=== PATIENT | male | born 1950 | race Caucasian/White ===

== ENCOUNTER → 2020-06-23 | Outpatient (CLI) | payer MEDICARE ==
--- NOTE | 2020-06-23 12:55 | ST Modified Barium Swallow ---
Recommendation - Recommendations Recommendations: Recommend patient have thin liquids and mechanical soft solids with ground meats. Patient is at moderate risk of aspiration on this diet, however, patient and family voice understanding and continue to want to consume PO. Patient may benefit from dysphagia therapy to address reduced pharyngeal constriction and airway closure. Patient to speak with physician for referral if he wishes to pursue this. Medical Diagnoses - Medical Diagnoses Medical Diagnosis Description & ICD-10 Code(s): dysphagia R13.10 Other Medical Diagnoses/Co-Morbidities: per patient and family report: COPD, C6- 7 replacement x2 months, PEG placement, recurrent pneumonia, pacemaker ST Modified Barium Swallow - General Date: 06/23/20 Referring Physician: Tyler Conley PA-C Risks/Precautions: Falls, Aspiration Date of Onset: 04/12/20 - approximate onset Reason for Referral: difficulty swallowing, hx of aspiration pneumonia - History -: Medical - Patient arrived with son for study, both contributed to medical history. The patient reports having swallowing difficulties following a cervical spine surgery (C6-7) approximately 2 months ago. Patient reportedly developed aspiration pneumonia in May, and had a swallow study at the hospital with PEG placed approximately 6-7 weeks ago. Patient has started eating by mouth soft solids, and water as only liquid by mouth. Patient does report having had speech therapy in inpatient rehab and home health, reports largely oral motor exercises completed. Medications: per family report: garbadil, insulin, isosorb, furosemin Allergies: none reported - Functional Status Prior Functional Status: INDEPENDENT: feeding - independent Current Functional Limitations: feeding - PEG feeds, some PO - Subjective Patient/caregiver goal(s): safe swallow, r/o aspiration Cognitive-Linguistic Function: WNL Speech Intelligibility: WNL Current Nutritional Means: PEG, PO Current PO diet: Soft - with thin water only Current symptoms: Hx of asp. pneumonia Pain: Patient reports, 0/5 - Objective Assessment: Upright, Left Lateral - Food Trials Used Food trials used: Thin liquids, [place] thick liquids, Pureed, Regular The patient: Was Able to Self Feed - Oral-Motor Skills Dentition: Partial Velo-pharyngeal function: Unremarkable Laryngeal Function: clear voicing - Assessment Oral prep: Normal Labial closure: Adequate Leakage: None Mastication: Adequate Lingual Movement: Normal Oral stage: Normal for this Procedure - Pharyngeal Stage Initiation of Pharyngeal Stage Reflex: Normal Decreased laryngeal elevation: Yes - mild Reduced Velopharyngeal Closure: no Reduced pressure generation: Yes - moderate reduced tongue-based retraction: No Pre-swallow pooling in valleculae: None Pre-Swallow pooling in pyriforms: None Reduced Thyro-Hyoid approximation: Yes - mild Reduced epiglottic excursion: Yes - moderate Reduced pharyngeal peristalsis/contraction: Yes - moderate Multiple Swallows with: Ineffective Clearance Post-swallow residulas vallecular: Significant Post-Swallow residuals in pyriforms: Mild - Fall Risk Assessment Medications/Conditions that increase fall risks include: Antidepressants, sedatives, anti-arrhythmic, diuretic, benzodiazipenes, neuroleptics. BP regulation problems, cardiac problems, balance or gait deficits, neurological problems. Is patient considered at risk for falls: yes Fall Risk Actions Taken: No action needed - Behavioral Observations During evaluation process patient: was cooperative, able to answer questions - Treatment / Educational Needs: Treatment/Education Needs: Treatment consisted of patient education on the role of the Speech Pathologist. Patient's plan of care and golas were communicated as well as scheduling and attendance policies. Recommendations for initial home program were shared. Patient demonstrated understanding and verbalized agr eement. - Impression/Summary Laryngeal Penetration: Yes - penetration of thin liquids seen on the swallow, to the level of the vocal folds at times. No cough reaction seen with this. Some penetration of residuals of multiple consistencies from valleculae also seen. Able to clear penetration with cued cough, poor sensation observed. Tracheal Aspiration: no - No overt aspiration seen, although there was deep penetration of thin liquids to the level of the vocal folds. Productive cough: Yes - when cued Effective compensatory strategies: throat clear & reswallow Ineffective compensatory strategies: chin down Patient presents with: Pharyngeal stage dysph. - moderate Risk of Aspiration: Moderate Risk of nutritional compromise: None Evaluation and Findings: Patient presents with moderate pharyngeal phase dysphagia, characterized by reduced epiglottic inversion which resulted in valleculae residue, reduced airway closure which resulted in deep penetration of thin liquids, and reduced pharyngeal constriction which resulted in pharyngeal residue at valleculae and pyriform sinus. Residue increased as texture increased. Patient had poor sensation for penetration as well as residue. With cued cough, patient consistently was able to clear penetrated material, but did not complete spontaneous cough with deep penetration. With multiple dry swallows and liquid wash, valleculae residue was reduced but not eliminated. [place] thick liquids demonstrated less penetration on the swallow, but increased residue after the swallow. - Recommendations Solid diet recommendations: Mechanical Soft Liquid Diet Modification: Thin Strict aspiration precautions: Yes Pt/Family education and followup with MD: Yes Dysphagia therapy with [employer]: yes - Patient may benefit from dysphagia treatment focusing on pharyngeal phase of the swallow if he desires. Recommended techniques: Fully Upright During Meal, Small Bites and Sips, Alternate Bites/Sips Information, Precautions and Recommendations: Patient (Written), Patient (Verbal), Family Member (Written), Family Member (Verbal) Other recommendations: Discussed recommendations to reduce risk of aspiration pneumonia, including good oral care before and after meals and staying as mobile/active as he is able. Patient discussed that quality of life is very important to him. He voiced understanding of current risk of aspiration, and risk of developing an aspiration pneumonia. Therapist discussed diet recommendations of thin liquids and mechanical soft solids, and stated that the patient is still at risk of aspiration on this diet. - Time Total Time: 45 - Plan of Care Strategies to optimize patient understanding include:: ongoing assessment of educational needs, implementation of educational strategies, and re-education. - - -: Thank you for the opportunity to work with this patient and his/her family. Should you have any questions about this patient's plan or progress, I can be reached at [phone].
--- NOTE | 2020-06-23 13:02 | RADIOLOGY REPORT (SQ) ---
EXAM DESCRIPTION: COOKIE SWALLOW IMAGES COMPLETED DATE/TIME: 06/23/2020 9:23 am REASON FOR STUDY: R13.10 DYSPHAGIA, UNSPECIFIED R13.10 DYSPHAGIA, UNSPECIFIED Dysphagia and aspiration pneumonia following cervical fusion COMPARISON: None. TECHNIQUE: Videofluoroscopic swallowing examination was performed in conjunction with speech patholo gy. Videofluoroscopic imaging was obtained and reviewed and these are the findings: RADIATION DOSE: 2.9 MINUTES OF FLUOROSCOPY WAS USED. 1 images saved to PACS. LIMITATIONS: None FINDINGS: The patient was brought into the fluoro room and placed upright on a modified barium swall ow chair. The patient was then given multiple consistencies mixed with barium to swallow under live fluoroscopic video guidance. According to the Speech Pathologist there was deep laryngeal penetratio n to the level the cords with thin liquids and post swallow residuals from the vallecular and pirifor m sinuses. Moderate post swallow residual contrast within the vallecular. IMPRESSION: DEEP LARYNGEAL PENETRATION TO LEVEL THE CORDS ABOVE. PLEASE SEE SPEECH PATHOLOGIST RE PORT FOR OTHER FINDINGS AND RECOMMENDATIONS. COMMENT: Quality ID [id number]: Final reports for procedures using fluoroscopy that document radiation exp osure indices, or exposure time and number of fluorographic images (if radiation exposure indices are not available) TECHNICAL DOCUMENTATION: JOB ID: [id number] 2010 [employer]- All Rights Reserved Reading location - IP/workstation name: [email or web address] [id number]
--- OUTSIDE RECORDS SUMMARY | 2020-06-24 15:03 | XMS REPORT ---
:1950 [facility] [place] [address] [place] [id number] Care Team Providers Name Role Phone Luis Diaz Primary Care Physician Unavailable Vivi WILL Attending Clinician Unavailable Breann WILL Attending Clinician Unavailable Allergies, Adverse Reactions, Alerts This patient has no known allergies or adverse reactions. Medications Ordered Filled Start Stop Current Ordering Indication Dosage Frequency Signature Comments Components Medication Medication Date Date Medication? Clinician (SIG) Name Name Folic Acid 2019-0 Yes Folic Acid 800 MCG 8-08 800 MCG Oral Tablet 00:00: Oral 00 Tablet TAKE 1 TABLET BY MOUTH EVERY DAY FOR 30 DAYS Quantity: 30 Refills: 0 Start : 19-Mar-2020 Active FeroSul 325 2019-0 Yes FeroSul (65 Fe) MG 8-08 325 (65 Oral Tablet 00:00: Fe) MG 00 Oral Tablet TK 1 T PO QD FOR 30 DAYS Quantity: 30 Refills: 0 Start : 19-Mar-2020 Active Gabapentin 2019-0 Yes Gabapentin 300 MG 8-05 300 MG Capsule 00:00: Capsule (OR) - 00 (OR) - [id number]_Deac ivated tivated TK 2 CS PO QHS Quantity: 180 Refills: 0 Start : 16-Mar-2020 Active Atorvastati 2019-0 Yes Atorvastat n Calcium 8-05 in Calcium 20 MG Oral 00:00: 20 MG Oral Tablet 00 Tablet TK 1 T PO QAM Quantity: 90 Refills: 0 Start : 16-Mar-2020 Active Vitamin D 2019-0 Yes Vitamin D (Ergocalcif 7-15 (Ergocalci maya) 1.25 00:00: ferol) MG (29326 00 1.25 MG UT) Oral (96649 UT) Capsule Oral Capsule TAKE 1 CAPSULE BY MOUTH ONCE A WEEK Quantity: 12 Refills: 0 Start : 0Active Clopidogrel 2019-0 Yes Clopidogre Bisulfate 7-15 l 75 MG Oral 00:00: Bisulfate Tablet 00 75 MG Oral Tablet Quantity: 90 Refills: 0 Start : 0Active Midodrine 2019-0 Yes Midodrine HCl - 5 MG 6-24 HCl - 5 MG Oral Tablet 00:00: Oral 00 Tablet TAKE 1 TABLET BY MOUTH THREE TIMES DAILY Quantity: 90 Refills: 0 Start : 0Active Carvedilol 2019-0 Yes Carvedilol 6.25 MG 6-24 6.25 MG Oral Tablet 00:00: Oral 00 Tablet Quantity: 180 Refills: 0 Start : 0Active Eliquis 5 2019-0 Yes Eliquis 5 MG Oral 6-15 MG Oral Tablet 00:00: Tablet 00 TAKE 1 TABLET BY MOUTH TWICE DAILY Quantity: 60 Refills: 0 Start : 0Active Isosorbide 2019-0 Yes Isosorbide Dinitrate 5-08 Dinitrate 10 MG Oral 00:00: 10 MG Oral Tablet 00 Tablet Quantity: 90 Refills: 0 Start : 18-Dec-2019 Active Bactrim DS No 1 Q12H Bactrim DS 800 mg-160 800 mg-160 mg tablet mg tablet Take 1 Take 1 tablet tablet every 12 every 12 hours by hours by oral route oral route for 14 for 14 days. days. oxycodone 5 No oxycodone mg/5 mL 5 mg/5 mL oral oral solution solution TAKE 5 TAKE 5 MILLILITERS MILLILITER (5mg) VIA S (5mg) FEEDING VIA TUBE THREE FEEDING TIMES A DAY TUBE THREE TIMES A DAY Zofran 4 mg No Zofran 4 tablet Take mg tablet one tablet Take one via feeding tablet via tube every feeding 4-6 hours tube every prn nausea 4-6 hours prn nausea carvedilol No 1 BID carvedilol 6.25 mg 6.25 mg tablet Take tablet 1 tablet Take 1 twice a day tablet by oral twice a route as day by directed. oral route as directed. clopidogrel No 1 Q1D clopidogre 75 mg l 75 mg tablet Take tablet 1 tablet Take 1 every day tablet by oral every day route in by oral the morning route in for 90 the days. morning for 90 days. insulin No 5unit(s insulin lispro ) lispro (U-100) 100 (U-100) unit/mL 100 subcutaneou unit/mL s cartridge subcutaneo Inject 5 us units by cartridge subcutaneou Inject 5 s route. units by subcutaneo us route. isosorbide No 1 TID isosorbide dinitrate dinitrate 10 mg 10 mg tablet Take tablet 1 tablet 3 Take 1 times a day tablet 3 by oral times a route as day by directed. oral route as directed. magnesium No magnesium 200 mg (as 200 mg (as magnesium magnesium oxide) oxide) tablet Take tablet by oral Take by route. oral route. midodrine 5 No 1 Q1D midodrine mg tablet 5 mg Take 1 tablet tablet Take 1 every day tablet by oral every day route with by oral meals for route with 30 days. meals for 30 days. clobetasol No clobetasol 0.05 % 0.05 % scalp scalp solution solution Uses as Uses as needed needed ferrous No ferrous sulfate 325 sulfate mg (65 mg 325 mg (65 iron) mg iron) tablet TAKE tablet 1 TABLET BY TAKE 1 MOUTH EVERY TABLET BY DAY FOR 30 MOUTH DAYS EVERY DAY FOR 30 DAYS folic acid No 1capsul Q1D folic acid 0.8 mg e(s) 0.8 mg capsule capsule Take 1 Take 1 capsule capsule every day every day by oral by oral route for route for 30 days. 30 days. aspirin 81 No 1 Q1D aspirin 81 mg mg tablet,arsenio tablet,del yed release ayed Take 1 release tablet Take 1 every day tablet by oral every day route. by oral route. Children's No Children's Tylenol 160 Tylenol mg/5 mL 160 mg/5 oral mL oral suspension suspension Entresto 24 No 1 BID Entresto mg-26 mg 24 mg-26 tablet Take mg tablet 1 tablet Take 1 twice a day tablet by oral twice a route. day by oral route. folic acid No 1 Q1D folic acid 1 mg tablet 1 mg Take 1 tablet tablet Take 1 every day tablet by oral every day route. by oral route. furosemide No 1 Q1D furosemide 40 mg 40 mg tablet Take tablet 1 tablet Take 1 every day tablet by oral every day route. by oral route. gabapentin No 5mL Q1D gabapentin 250 mg/5 mL 250 mg/5 oral mL oral solution solution Take 5 mL Take 5 mL every day every day by oral by oral route at route at bedtime. bedtime. Gissell-suri No 2 Q1D Gissell-suri 8.6 mg 8.6 mg tablet Take tablet 2 tablets Take 2 every day tablets by oral every day route. by oral route. hydralazine No 1 Q8H hydralazin 50 mg e 50 mg tablet Take tablet 1 tablet Take 1 every 8 tablet hours by every 8 oral route. hours by oral route. Levemir No 15unit( Q1D Levemir FlexTouch s) FlexTouch U-100 U-100 Insulin 100 Insulin unit/mL (3 100 mL) unit/mL (3 subcutaneou mL) s pen subcutaneo Inject 15 us pen units every Inject 15 day by units subcutaneou every day s route. by subcutaneo us route. methocarbam No 1 Q8H methocarba ol 750 mg mol 750 mg tablet Take tablet 1 tablet Take 1 every 8 tablet hours by every 8 oral route. hours by oral route. Medications No Medication not s not documented documented Eliquis 5 No 1 Q1D Eliquis 5 mg tablet mg tablet Take 1 Take 1 tablet tablet every day every day by oral by oral route for route for 30 days. 30 days. Medications No Medication not s not documented documented Medications No Medication not s not documented documented folic acid No 1 Q1D folic acid 800 mcg 800 mcg tablet Take tablet 1 tablet Take 1 every day tablet by oral every day route for by oral 30 days. route for 30 days. gabapentin No 1capsul Q1D gabapentin 300 mg e(s) 300 mg capsule capsule Take 1 Take 1 capsule capsule every day every day by oral by oral route for route for 90 days. 90 days. Vitamin D2 No Vitamin D2 1,250 mcg 1,250 mcg (50,000 (50,000 unit) unit) capsule capsule atorvastati No 1 Q1D atorvastat n 20 mg in 20 mg tablet Take tablet 1 tablet Take 1 every day tablet by oral every day route for by oral 90 days. route for 90 days. 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 failure Failure Chronic Chronic Problem Active kidney Kidney 03-24 disease Disease 00:00: stage 3 Stage 3 00 Congestive Congestive Problem Inactiv heart Heart e 03-16 failure Failure 00:00: 00 Pruritus of Pruritus of Problem Active skin Skin 03-16 00:00: 00 Ex-smoker Ex-smoker Problem Active 03-16 00:00: 00 Automatic Automatic Problem Active implantable Implantable 03-16 cardiac Cardiac 00:00: defibrillat Defibrillat 00 or in situ or in Situ Atheroscler Atheroscler Problem Active osis of osis of 03-16 coronary Coronary 00:00: artery Artery 00 without without angina Angina pectoris Pectoris Diabetes Diabetes Problem Active mellitus Mellitus 03-16 00:00: 00 Hyperlipide Hyperlipide Problem Active zane zane 03-16 00:00: 00 Hypomagnese Hypomagnese Problem Active zane zane 03-16 00:00: 00 Insomnia Insomnia Problem Active 03-16 00:00: 00 Essential Essential Problem Active hypertensio Hypertensio 05 n n 00:00: 00 Paroxysmal Paroxysmal Problem Active atrial Atrial 03-16 fibrillatio Fibrillatio 00:00: n n 00 Pruritus of Pruritus of Problem Active skin skin Atheroscler Atheroscler Problem Active osis osis Disease Active Condition medical history not documented Atheroscler Atheroscler Problem Active osis of [place]sis [place] coronary coronary artery of artery [place] heart heart without without angina angina pectoris pectoris Cardiomyopa Cardiomyopa Problem Active thy, thy, unspecified unspecified type type Bilateral Bilateral Problem Active impacted impacted cerumen cerumen Procedures Procedure Date / Time Performed Performing Clinician Devic e Spinal Surgery 2020-05-03 00:00:00 MRI, brain, w/o contrast 2020-04-15 00:00:00 EKG 2020-03-24 00:00:00 US, abdominal aorta 2020-03-16 00:00:00 Pacemaker/Defibrillator 2017-08-12 00:00:00 History of No history of surgery Results Test Description Test Time Test Comments Text Results Atomic Results Result Comments Ferritin [Mass/volume] in Serum or Plasma 2020-03-18 21:14:00 Test Item Value Reference Range Comments ferritin (test code = ferritin) 24.39 NG/mL 21.81-274.66 Hemoglobin A1c/Hemoglobin.total in [id number] 17:33:76U6Uzxhnvejn lab 2020-03-18 12:15:00 Test Item Value Reference Range Comments magnesium (test code = magnesium) 2.6 mg/dL 1.6-2.6 vitamin B12 (test code = vitamin B12) 413 pg/mL 213-816 Folate [Mass/volume] in Serum or [id number] 12:15:00 Test Item Value Reference Range Comments folic acid (test code = folic acid) 8.3 NG/mL 7.0-31.4 Iron and Iron binding capacity panel - Serum or [id number] 11:41:00 Test Item Value Reference Range Comments iron (test code = iron) 135 ug/dL 65-175 TIBC calculation (test code = TIBC calculation) 358 ug/dL 233-485 %saturation (test code = %saturation) 38 % 20-55 PSA, serum or [id number] 18:45:00 Test Item Value Reference Range Comments PSA total (test code = PSA total) 2.03 NG/mL Comprehensive metabolic 2000 panel - Serum or [id number] 18:24:00 Test Item Value Reference Range Comments sodium (test code = sodium) 138 mmol/L 137-144 potassium (test code = potassium) 4.4 mmol/L 3.1-5.1 chloride (test code = chloride) 103 mmol/L 101-110 carbon dioxide (test code = carbon dioxide) 26 mmol/L 23-3 1 glucose (test code = glucose) 325 mg/dL 70-105 BUN (test code = BUN) 39.0 mg/dL 8.4-25.7 creatinine (test code = creatinine) 2.39 mg/dL 0.72-1.25 anion gap (test code = anion gap) 13 mmol/L 7-16 calcium (test code = calcium) 9.6 mg/dL 8.4-10.2 total bilirubin (test code = total bilirubin) 0.1 mg/dL 0. 1-1.2 total protein (test code = total protein) 6.9 g/dL 6.0-8. 3 albumin (test code = albumin) 3.8 g/dL 3.2-5.2 globulin (test code = globulin) 3.1 g/dL 2.6-4.6 A/G ratio (test code = A/G ratio) 1.2 g/dL 1.1-2.5 AST (test code = AST) 23 U/L 5-34 alkaline phosphatase (test code = alkaline 95 U/L 40-15 0 phosphatase) ALT (test code = ALT) 24 U/L 0-55 Lipid 1996 panel - Serum or [id number] 18:24:00 Test Item Value Reference Range Comments cholesterol (test code = cholesterol) 183 mg/dL 0-200 triglyceride (test code = triglyceride) 110.0 mg/dL 0.0-150. 0 HDL cholesterol (test code = HDL cholesterol) 70 mg/dL 60 -100 VLDL (test code = VLDL) 22 mg/dL 5-40 Cholesterol in LDL [Mass/volume] in Serum or 91 mg/dL 0.0 -129.0 Plasma (test code = 2089-1) Magnesium [Moles/volume] in Unspecified [id number] 18:24:00 Test Item Value Reference Range Comments magnesium (test code = magnesium) 2.6 mg/dL 1.6-2.6 CBC W Auto Differential panel - [id number] 17:57:00 Test Item Value Reference Range Comments white blood count (test code = white blood count) 4.1 K/mm3 3.6-11.1 red blood count (test code = red blood count) 2.82 M/uL 4. 27-5.49 hemoglobin (test code = hemoglobin) 8.4 g/dL 12.9-16.1 hematocrit (test code = hematocrit) 26.9 % 37.7-46.5 mean corpuscular volume (test code = mean 95.1 fL 79.3-9 4.8 corpuscular volume) mean corpuscular hemoglobin (test code = mean 29.8 pg 26 .8-33.2 corpuscular hemoglobin) mean corpuscular HGB conc (test code = mean 31.3 g/dL 33.5 -35.5 corpuscular HGB conc) red cell distribution width (test code = red cell 15.8 % 12.0-15.1 distribution width) platelet count (test code = platelet count) 291 K/mm3 165- 353 mean platelet volume (test code = mean platelet 9.4 fL 7.5-10.6 volume) neutrophils % (test code = neutrophils %) 75.8 % 43.2-7 1.5 lymph % (test code = lymph %) 13.6 % 16.8-43.4 mono % (test code = mono %) 3.6 % 4.6-12.4 eos % (test code = eos %) 5.6 % 0.7-7.8 baso % (test code = baso %) 1.4 % 0.2-1.2 neutrophil # (test code = neutrophil #) 3.1 K/mm3 1.9-7.2 lymph # (test code = lymph #) 0.6 K/mm3 1.1-2.7 mono # (test code = mono #) 0.1 K/mm3 0.3-0.8 eosinophil # (test code = eosinophil #) 0.2 K/mm3 0.0-0.5 baso # (test code = baso #) 0.1 K/mm3 0.0-0.1 Hemoglobin A1c/Hemoglobin.total in [id number] 11:25:00 Test Item Value Reference Range Comments Hemoglobin A1c/Hemoglobin.total in Blood (test code = 6.4 % 4-5.6 4548-4) Assessments Condition Name Status Diagnosis Date Treating Clinici an Abscess of skin and/or subcutaneous Active 2020-06-07 2 0:02:44 tissue Transition of care Active 2020-06-07 11:20:27 Solitary nodule of lung Active 2020-06-07 11:22:15 Dysphagia Active 2020-06-07 11:29:39 Automatic implantable cardiac Active 2020-06-07 11:40:5 3 defibrillator in situ Iron deficiency anemia Active 2020-06-07 11:43:06 Cellulitis Active 2020-06-07 11:49:26 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 Automatic implantable cardiac Active 2020-04-15 08:55:1 5 defibrillator in situ Pruritus of skin Active 2020-04-15 08:55:25 Diabetes mellitus Active 2020-04-15 08:57:30 Fall Active 2020-04-15 09:01:26 Lung mass Active 2020-04-15 09:02:56 Paroxysmal atrial fibrillation Active 2020-04-15 09:06: 21 Unsteady gait Active 2020-04-15 09:13:33 Chronic kidney disease stage 3 Active 2020-04-15 11:12: 13 Normocytic anemia Active 2020-04-15 11:24:44 Bilateral impacted cerumen Active Hyperlipidemia Active Diabetes mellitus Active Essential hypertension Active ICD (implantable Active cardioverter-defibrillator) in place Atherosclerosis of [place] coronary Active artery of [place] heart without angina pectoris Cardiomyopathy, unspecified type Active Paroxysmal atrial fibrillation Active 2020-03-16 09:41: 22 Automatic implantable cardiac Active 2020-03-16 09:42:4 6 defibrillator in situ Congestive heart failure Active 2020-03-16 09:44:22 Hypomagnesemia Active 2020-03-16 09:45:29 Pruritus of skin Active 2020-03-16 09:46:49 Insomnia Active 2020-03-16 09:47:52 Adult health examination Active 2020-03-16 09:07:12 Diabetes mellitus Active 2020-03-16 09:07:34 Essential hypertension Active 2020-03-16 09:07:59 Hyperlipidemia Active 2020-03-16 09:08:27 Atherosclerosis of coronary artery Active 2020-03-16 09 :20:24 without angina pectoris Ex-smoker Active 2020-03-16 09:29:23 Encounters Start End Encounter Admission Attending Care Care Encounter Date/Time Date/Time Type Type Clinicians Facility Department ID 2020-06-07 2020-06-07 Jm Dunn Lis [id number] 00:00:00 00:00:00 Nas[facility] [id number] [address] [place] [address] , Ph. 2020-06-07 2020-06-07 Luis Lis [place] [id number] 00:00:00 00:00:00 [facility] [address] [facility] [employer] [facility] PA: [place] [address] , Ph. 2020-04-15 2020-04-15 Luis [place] [id number] 00:00:00 00:00:00 [facility] [address] [facility] [employer] [facility] PA: [place] [address] , Ph. 2020-04-12 2020-04-12 MIKE Dinh [facility] [id number] 15:00:00 17:45:16 t; Tre Reed MD 2020-03-30 2020-03-30 MIKE Sheridan [facility] [id number] 13:00:00 13:00:00 t; Juvencio Langston MD 2020-03-16 2020-03-16 Luis Andersonroopa [place] [id number] 00:00:00 00:00:00 [facility] [address] [facility], [facility] PA: [address] [place] [address] , Ph. Family History Family Member Diagnosis Comments Start Date Stop Date Mother Family history of diabetes mellitus Father Family history of diabetes mellitus Social History Smoking Status Start Date Stop Date Former Smoker Vital Signs Vital Name Observation Time Observation Value Comments BP Diastolic 2020-06-07 00:00:00 58 mm[Hg] Height 2020-06-07 00:00:00 69 [in_i] BMI (Body Mass Index) 2020-06-07 00:00:00 20.2 kg/m2 BP Systolic 2020-06-07 00:00:00 118 mm[Hg] Body Weight 2020-06-07 00:00:00 137 [lb_av] BP Diastolic 2020-06-07 00:00:00 64 mm[Hg] Height 2020-06-07 00:00:00 69 [in_i] BMI (Body Mass Index) 2020-06-07 00:00:00 20.2 kg/m2 BP Systolic 2020-06-07 00:00:00 133 mm[Hg] Body Weight 2020-06-07 00:00:00 136.9 [lb_av] BP Diastolic 2020-04-15 00:00:00 78 mm[Hg] Height 2020-04-15 00:00:00 69 [in_i] BMI (Body Mass Index) 2020-04-15 00:00:00 21.1 kg/m2 BP Systolic 2020-04-15 00:00:00 141 mm[Hg] Body Weight 2020-04-15 00:00:00 142.8 [lb_av] BP Diastolic 2020-03-16 00:00:00 52 mm[Hg] Height 2020-03-16 00:00:00 69 [in_i] BMI (Body Mass Index) 2020-03-16 00:00:00 19.7 kg/m2 BP Systolic 2020-03-16 00:00:00 114 mm[Hg] Body Weight 2020-03-16 00:00:00 133.3 [lb_av] Systolic blood pressure 2020-04-12 14:55:00 146 mm[Hg] Loca tion: LUE; Position: Sittin g Diastolic blood pressure 2020-04-12 14:55:00 82 mm[Hg] Loc ation: LUE; Position: Sittin g Body height 2020-04-12 14:55:00 69 [in_us] Weight 2020-04-12 14:55:00 144 [lb_av] Body mass index (BMI) 2020-04-12 14:55:00 21.27 kg/m2 [Ratio] Heart Rate 2020-04-12 14:55:00 72 /min O2 SAT 2020-04-12 14:55:00 98 % Systolic blood pressure 2020-03-30 14:01:00 114 mm[Hg] Diastolic blood pressure 2020-03-30 14:01:00 53 mm[Hg] Body height 2020-03-30 14:01:00 69 [in_us] Weight 2020-03-30 14:01:00 133.1875 [lb_av] Body mass index (BMI) 2020-03-30 14:01:00 19.67 kg/m2 [Ratio] Heart Rate 2020-03-30 14:01:00 63 /min Hospital Discharge Instructions 1. Abscess of skin and/or subcutaneous tissue skin abscess: care instructions Discussion Note: None recorded.1. Transition of care CBC w/ auto diff BMP, serum or plasma 2. Solitary nodule of lung consumer studies professor referral 3. Dysphagia 4. Automatic implantable cardiac defibrillator in situ 5. Iron deficiency anemia iron + total iron-binding capacity (TIBC), serum ferritin, serum or plasma 6. Cellulitis general surgery referral Discussion Note: None recorded. Patient educational handouts:No information available. NameDatesDetailsInstructions not documentedNameDatesDetailsInstructions not documented1. Adult health examination CMP, serum or plasma PSA, serum or plasma CBC w/ auto diff lipid panel, serum 2. Diabetes mellitus HbA1c (hemoglobin A1c), blood 3. Essential hypertension 4. Hyperlipidemia atorvastatin 20 mg tablet 5. Atherosclerosis of coronary artery without angina pectoris 6. Ex-smoker US, abdominal aorta 7. Paroxysmal atrial fibrillation 8. Automatic implantable cardiac defibrillator in situ cardiology referral 9. Congestive heart failure 10. Hypomagnesemia unlisted lab - magnesium 11. Pruritus of skin gabapentin 300 mg capsule dermatologyreferral 12. Insomnia Discussion Note: None recorded. Patient educational handouts: No information available.
== END ==
LOC: RAD 08:11
PROVIDERS: ATTEND Physician Assistant
DX: R13.13 Dysphagia, pharyngeal phase (principal)
CPT/HCPCS: 74230